=== PATIENT | female | born 2000 | race Caucasian/White ===

== ENCOUNTER 2023-05-06 08:36 | Emergency (ER) | payer MEDICAID ==
[2023-05-06] MEDS ORDERED: Dexamethasone 10 MG/ML SDV PO ONE (09:10)
== END 2023-05-06 09:30 | disposition home or self-care (01) ==
LOC: MW.ED 08:36
DX: J02.9 Acute pharyngitis, unspecified (principal)
CPT/HCPCS: 99282; J8540; 99283